=== PATIENT | female | born 1940 | race Caucasian/White ===

== ENCOUNTER 2017-12-07 09:42 | Outpatient (CLI) | payer MEDICARE | END 2017-12-07 09:43 | disposition short-term general hospital (02) | LOC: EMS 09:42 | PROVIDERS: ATTEND Surgery | DX: R50.9 Fever, unspecified (principal); R09.89 Other specified symptoms and signs involving the circulatory and respiratory systems; R22.1 Localized swelling, mass and lump, neck | CPT/HCPCS: A0425; A0427 ==